=== PATIENT | female | born 1975 | race Caucasian/White ===

== ENCOUNTER 2017-03-29 13:15 | Emergency (ER) | payer OTHER ==
[~2017-03-29] VITALS: Ht 149.9 cm; Wt 112.8 kg
[~2017-03-29 13:15] MED LIST: FLEXERIL10 MG PO; HYDROCODON-ACE1 EAC7 PO; MUCUS RELIEF600 MG PO; NAPROSYN-EC500 MG PO
[2017-03-29] MEDS ORDERED: MOBIC15 MG PO (14:54)
[2017-03-29] MEDS ORDERED: FLEXERIL10 MG PO (14:54)
[2017-03-29 15:27] VITALS: BP 154/94
== END 2017-03-29 15:29 | disposition home or self-care (01) ==
LOC: EME 13:15
DX: M54.2 Cervicalgia (principal); M54.9 Dorsalgia, unspecified; M25.511 Pain in right shoulder; M79.601 Pain in right arm; V49.40XA Driver injured in collision with unspecified motor vehicles in traffic accident, initial encounter; K21.9 Gastro-esophageal reflux disease without esophagitis
CPT/HCPCS: 99281; 99284

== ENCOUNTER 2017-11-10 20:32 | Emergency (ER) | payer OTHER ==
[~2017-11-10] VITALS: Ht 152.4 cm; Wt 105.8 kg
[~2017-11-10 20:32] MED LIST changes: +MOBIC15 MG PO
[2017-11-10 20:36] VITALS: BP 155/79
[2017-11-10] MEDS ORDERED: ZOFRAN ODT4 MG PO (22:30)
[2017-11-10] MEDS ORDERED: TRAMADOL HCL50 MG PO (22:30)
[2017-11-10] MEDS ORDERED: SKELAXIN800 MG PO (22:30)
== END 2017-11-10 23:24 | disposition home or self-care (01) ==
LOC: EME → EDBD 20:32 → EME 20:32
DX: S16.1XXA Strain of muscle, fascia and tendon at neck level, initial encounter (principal); V49.50XA Passenger injured in collision with unspecified motor vehicles in traffic accident, initial encounter; Y92.410 Unspecified street and highway as the place of occurrence of the external cause; Z88.2 Allergy status to sulfonamides
CPT/HCPCS: 72040; 99281; 99284

== ENCOUNTER 2018-02-07 20:14 | Emergency (ER) | payer OTHER ==
[~2018-02-07] VITALS: Ht 152.4 cm; Wt 102.2 kg
[~2018-02-07 20:14] MED LIST changes: +SKELAXIN800 MG PO; +TRAMADOL HCL50 MG PO; +ZOFRAN ODT4 MG PO
[2018-02-07 20:57] LABS: CHLORIDE 104 mEq/L (99-109); POTASSIUM 4.4 mEq/L (3.7-5.4); SODIUM 140 mEq/L (136-147)
[2018-02-07 20:59] LABS: GLUCOSE 112 mg/dL (70-99)
[2018-02-07 21:03] LABS: CREATININE 0.8 mg/dL (0.6-1.3); GFR ESTIMATE (CALCULATED) > 59 mL/min/
[2018-02-07 21:04] LABS: UREA NITROGEN (BUN) 13 mg/dL (9-23)
[2018-02-07 21:11] LABS: TROP-I INTERPRETATION NEGATIVE; TROPONIN-I < 0.01 ng/mL (0.0-0.30)
[2018-02-07 21:18] LABS: HEMATOCRIT 40.5 % (36.0-46.0); MCH 27.7 PG (29.0-34.0); MCHC 32.1 G/DL (30.0-36.0); MCV 86.2 FL (83-99); PLATELET COUNT 329 K/uL (156-360); RBC DIS.WIDTH-CV 13.3 % (11.8-14.6); RBC DIS.WIDTH-SD 41.5 % (39-53); WHITE BLOOD COUNT 10.2 K/uL (4.1-10.2)
[2018-02-07] MEDS ORDERED: PREDNISONE50 MG PO (21:28)
[2018-02-07 22:18] VITALS: BP 152/61
== END 2018-02-07 22:21 | disposition home or self-care (01) ==
LOC: EME 20:14
DX: R00.2 Palpitations (principal); J45.909 Unspecified asthma, uncomplicated; Z88.2 Allergy status to sulfonamides
CPT/HCPCS: 71046; 80048; 84484; 85027; 93005; 94640; 99281; 99285; J7512